=== PATIENT | female | born 1975 | race African-American/Black ===

== ENCOUNTER 2018-03-20 18:35 | Inpatient (IN) | payer OTHER ==
--- NOTE | 2018-03-20 19:03 | PDOC ---
Rapid Medical Evaluation Chief Complaint: Edema Time Seen by Provider: 03/20/18 18:57 Medical Evaluation: 03/20/18 18:58 I have performed a brief in-person evaluation of this patient. The patient presents with a chief complaint of: bilateral feet swellng, denies CP/ Palp/ SOB/ Fevers/ cough. No hx of renal disease Pertinent physical exam findings: + 2=3 pedal edema extends to knees, cool to touch I have ordered the following: CbC, CMP, BNP, UA, CXR, bilateral dopplers lower ext The patient will proceed to the ED for further evaluation. 03/20/18 19:02 03/20/18 19:03 03/20/18 19:05 Discharge Disposition - Diagnosis Edema Qualifiers: Edema type: unspecified Qualified Code(s): R60.9 - Edema, unspecified - Referrals - Patient Instructions - Post Discharge Activity
--- NOTE | 2018-03-20 19:45 | PDOC ---
History of Present Illness - General Chief Complaint: Edema Stated Complaint: EDEMA Time Seen by Provider: 03/20/18 18:57 - History of Present Illness Initial Comments: 03/20/18 19:45 Ms. Noguera is a 42 yo female w/ pmh of.... The patient denies chest pain, shortness of breath, headache and dizziness. Denies fever, chills, nausea, vomit, diarrhea and constipation. Denies dysuria, frequency, urgency and hematuria. I have performed a brief in-person evaluation of this patient. The patient presents with a chief complaint of: bilateral feet swellng, denies CP/ Palp/ SOB/ Fevers/ cough. No hx of renal disease Pertinent physical exam findings: + 2=3 pedal edema extends to knees, cool to touch I have ordered the following: CbC, CMP, BNP, UA, CXR, bilateral dopplers lower ext The patient will proceed to the ED for further evaluation. 03/20/18 19:45 03/20/18 19:48 Past History - Past Medical History Allergies/Adverse Reactions: Allergies Allergy/AdvReac Type Severity Reaction Status Date / Time No Known Allergies Allergy Verified 03/20/18 18:59 Home Medications: Ambulatory Orders Ibuprofen/Diphenhydramine Cit [Advil Pm Caplet] 1 each PO ASDIR 03/20/18 - Suicide/Smoking/Psychosocial Hx Smoking History: Current every day smoker Information on smoking cessation initiated: No Hx Alcohol Use: Yes (2-3 times a wk) Review of Systems - Review of Systems Comments:: 03/20/18 19:49 GENERAL/CONSTITUTIONAL: No fever or chills. No weakness. HEAD, EYES, EARS, NOSE AND THROAT: No change in vision. No ear pain or discharge. No sore throat. CARDIOVASCULAR: No chest pain or shortness of breath RESPIRATORY: No cough, wheezing, or hemoptysis. GASTROINTESTINAL: No nausea, vomiting, diarrhea or constipation. GENITOURINARY: No dysuria, frequency, or change in urination. MUSCULOSKELETAL: No joint or muscle swelling or pain. No neck or back pain. SKIN: No rash NEUROLOGIC: No headache, vertigo, loss of consciousness, or change in strength/ sensation. ENDOCRINE: No increased thirst. No abnormal weight change HEMATOLOGIC/LYMPHATIC: No anemia, easy bleeding, or history of blood clots. ALLERGIC/IMMUNOLOGIC: No hives or skin allergy. *Physical Exam - Vital Signs Last Vital Signs Temp Pulse Resp BP Pulse Ox 98.1 F 100 H 18 115/53 L 100 03/20/18 19:01 03/20/18 19:01 03/20/18 19:01 03/20/18 19:01 03/20/18 19:01 - Physical Exam Comments: 03/20/18 19:49 GENERAL: Awake, alert, and fully oriented, in no acute distress HEAD: No signs of trauma, normocephalic, atraumatic EYES: PERRLA, EOMI, sclera anicteric, conjunctiva clear ENT: Auricles normal inspection, hearing grossly normal, nares patent, oropharynx clear without exudates. Moist mucosa NECK: Normal ROM, supple, no lymphadenopathy, JVD, or masses LUNGS: No distress, speaks full sentences, clear to auscultation bilaterally HEART: Regular rate and rhythm, normal S1 and S2, no murmurs, rubs or gallops, peripheral pulses normal and equal bilaterally. ABDOMEN: Soft, nontender, normoactive bowel sounds. No guarding, no rebound. No masses EXTREMITIES: Normal inspection, Normal range of motion, no edema. No clubbing or cyanosis. NEUROLOGICAL: Cranial nerves II through XII grossly intact. Normal speech, normal gait, no focal sensorimotor deficits SKIN: Warm, Dry, normal turgor, no rashes or lesions noted. *DC/Admit/Observation/Transfer Diagnosis at time of Disposition: Edema Qualifiers: Edema type: unspecified Qualified Code(s): R60.9 - Edema, unspecified - Referrals - Patient Instructions - Post Discharge Activity
--- NOTE | 2018-03-20 20:48 | PDOC ---
Attending Attestation - HPI HPI: 03/20/18 21:47 The patient is a 42 year old female, with a significant past medical history of fibroids, who presents to the emergency department with, 2 days of bilateral lower extremity edema. Patient notes heavy bleeding during her menses, normally bleeding through 10 pads. Patient was advised to have a hysterectomy for her fibroids 10 years ago, but has not followed up. She denies recent fevers, chills, headache or dizziness. She denies recent nausea, vomit, diarrhea or constipation. She denies recent dysuria, frequency, urgency or hematuria. She denies recent chest pain or shortness of breath. Allergies: NKDA Past surgical history: None reported. - Physicial Exam PE: 03/20/18 21:48 Constitutional: Awake, alert, oriented. No acute distress. Head: Normocephalic. Atraumatic +Eyes: Pale conjunctiva. ENT: Mucous membranes are moist and intact. Posterior pharynx without exudates or erythema. Uvula midline. Neck: Supple. Full ROM. No lymphadenopathy. +Cardiovascular: Tachycardic. S1, S2 regular. Distal pulses are 2+ and symmetric. Pulmonary/Chest: No evidence of respiratory distress. Clear to auscultation bilaterally No wheezing, rales or rhonchi. +Abdominal: Palpable mass along the right jessie consistent with fibroids. Soft and non-distended. There is no tenderness. No rebound, guarding or rigidity. Good bowel sounds. Back: No CVA tenderness. +Musculoskeletal: 4+ pitting edema. No cyanosis. No clubbing. Full range of motion in all extremities. No calf tenderness. Radial/pedal pulses are intact and 2+ bilaterally Skin: Skin is warm and dry. No petechiae. No purpura. Neurological: Alert and oriented to person, place, and time. Cranial nerves II -XII are grossly intact. Normal speech. Strength is grossly symmetric. No sensory deficits. Psychiatric: Good eye contact. Normal interaction, affect and behavior. <Khang Mendenhall - Last Filed: 03/20/18 21:47> - Resident Resident Name: Carlitos Rios - ED Attending Attestation I have performed the following: I have examined & evaluated the patient, The case was reviewed & discussed with the resident, I agree w/resident's findings & plan, Exceptions are as noted - Medical Decision Making 03/20/18 20:48 I, Dr. Chanell Calix DO, attest that this document has been prepared under my direction and personally reviewed by me in its entirety. I further attest, that it accurately reflects all work, treatment, procedures and medical decision -making performed by me. 03/20/18 21:14 a/p: 42yo female with b/l LE swelling -hx of fibroids and still with menstrual cycles lasting 10-12 days with heavy bleeding and clots -was offered a hysterectomy in the past, but she was young and didn't want to undergo the surgery at the time -suspect LE swelling from low hgb -pale conjuctiva -will send labs, LE duplex ultrasound, pelvic ultrasound, type and screen -will monitor and reassess 03/20/18 21:47 hgb 3 03/20/18 21:47 will transfuse, will need admission 03/20/18 22:24 DVT study negative 03/20/18 22:24 ultrasound pelvis shows large fibroid resident discussed the case with Dr. 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 resident discussed the case with [facility] who accepts pt to service <Chanell Calix - Last Filed: 03/20/18 22:25> Attestations - Attestations 03/20/18 21:49 Documentation prepared by Khang Mendenhall, acting as medical sales representative for Chanell Calix DO. <Khang Mendenhall - Last Filed: 03/20/18 21:47>
--- NOTE | 2018-03-20 20:49 | PDOC ---
History of Present Illness - General Chief Complaint: Edema Stated Complaint: EDEMA Time Seen by Provider: 03/20/18 18:57 History Source: Patient Exam Limitations: No Limitations - History of Present Illness Initial Comments: 03/20/18 20:43 42 yo female pmh of fibroids presents to the ED with bilateral lower leg edema for 2 days. Pt states she was at work yesterday when she suddenly noticed her legs progressively swelling and had pain in her ankles. Patient works on her feet up to 16 hours a day at [employer]. Patient is adopted and unaware of family history, admits to a 2 pack year hx of smoking. Of note, pt told she had severe fibroids and advised to have surgery over 2 years ago but denied it at the time and notices the fibroids have grown. Pt recently had a menstrual cycle noted to be normal for her which means very heavy flow for 10 days with greater than 10 pads a day. Denies Cp, SOB, N/V/F/c, changes in bowel or bladder habits or abdominal pain. Past History - Past Medical History Allergies/Adverse Reactions: Allergies Allergy/AdvReac Type Severity Reaction Status Date / Time No Known Allergies Allergy Verified 03/20/18 18:59 Home Medications: Ambulatory Orders Ibuprofen/Diphenhydramine Cit [Advil Pm Caplet] 1 each PO ASDIR 03/20/18 - Suicide/Smoking/Psychosocial Hx Smoking History: Current every day smoker Information on smoking cessation initiated: No Hx Alcohol Use: Yes (2-3 times a wk) Review of Systems - Review of Systems Constitutional: No: Chills, Fever Respiratory: No: Shortness of Breath Cardiac (ROS): Yes: Edema (bilaeral X2 days). No: Chest Pain ABD/GI: No: Constipated, Diarrhea, Nausea, Vomiting : Yes: Other (10-12 days menstrual flow with greater than 10 pads required per day). No: Burning, Dysuria Musculoskeletal: No: Back Pain, Muscle Weakness Integumentary: No: Change in Color Neurological: No: Headache, Numbness, Paresthesia *Physical Exam - Vital Signs Last Vital Signs Temp Pulse Resp BP Pulse Ox 98.1 F 100 H 18 115/53 L 100 03/20/18 19:01 03/20/18 19:01 03/20/18 19:01 03/20/18 19:01 03/20/18 19:01 - Physical Exam General Appearance: Yes: Nourished, Appropriately Dressed. No: Apparent Distress HEENT: positive: EOMI, Pale Conjunctivae Respiratory/Chest: positive: Lungs Clear, Normal Breath Sounds. negative: Crackles, Rales, Rhonchi, Stridor, Wheezing Cardiovascular: positive: Regular Rhythm, S1, S2, Edema (bilateral 4+ pitting), Tachycardia. negative: JVD, Murmur Vascular Pulses: Dorsalis-Pedis (R): 3+, Doralis-Pedis (L): 3+ Gastrointestinal/Abdominal: positive: Normal Bowel Sounds, Flat, Protuberent ( multiple fibroids palpable ). negative: Soft, Distended, Guarding, Rebound, Tenderness Extremity: positive: Normal Capillary Refill Integumentary: positive: Normal Color, Dry, Warm Neurologic: positive: Fully Oriented, Alert, Normal Mood/Affect, Normal Response ED Treatment Course - LABORATORY CBC & Chemistry Diagram: 03/20/18 21:01 03/20/18 21:01 Medical Decision Making - Medical Decision Making 03/20/18 21:38 42 yo female pmh of fibroids and very heavy menstrual flow presents with bilateral 4+ pitting edema and pale conjunctiva DDX: Fibroids compressing IVC leading to bilateral pitting edema , heavy menstrual flow causing anemia Labs: Hgb 3.37 ------- 4 Units PRBC ordered 03/20/18 22:[address] Harris (OB) who states there is no role for Inpatient OB at this point and that the patient may require a hysterectomy from a [facility] with Oncology and no HEALTH ASSESSMENT AND TREATMENT TEACHER consult needed. Spoke with the Hospitalist team who agree to admit pt to med surg and possibly consult OB in the morning. *DC/Admit/Observation/Transfer Diagnosis at time of Disposition: Edema Qualifiers: Edema type: unspecified Qualified Code(s): R60.9 - Edema, unspecified - Referrals - Patient Instructions - Post Discharge Activity
[2018-03-20 21:17] LABS: EOS % 2.2 % (0-4.5); HEMATOCRIT 13.5 % (32.4-45.2); LYMPH % 36.5 % (8-40); MCHC 27.4 g/dl (32.0-36.0); MEAN CELL VOLUME 54.6 fl (80-96); MEAN PLT VOLUME 8.3 fl (7.5-11.1); MONO % 5.6 % (3.8-10.2); NEUT % 54.7 % (42.8-82.8); PLATELET COUNT 323 K/MM3 (134-434); RBC 2.47 M/mm3 (3.60-5.2); RDW 23.3 % (11.6-15.6); WHITE BLOOD COUNT 3.8 K/mm3 (4.0-10.0)
[2018-03-20 21:21] LABS: MCH 14.9 pg (25.7-33.7)
[2018-03-20 21:24] LABS: HEMOGLOBIN 3.7 GM/dL (10.7-15.3)
[2018-03-20 21:38] LABS: ALBUMIN 3.6 g/dl (3.4-5.0); ALK PHOS 138 U/L (45-117); ANION GAP 8 MMOL/L (8-16); BILIRUBIN,TOTAL 0.3 mg/dL (0.2-1); BLOOD UREA NITROGEN 7 mg/dL (7-18); CALCIUM 8.1 mg/dL (8.5-10.1); CHLORIDE 111 mmol/L (98-107); CO2 22 mmol/L (21-32); CREATININE 0.5 mg/dL (0.55-1.3); GLUCOSE,RANDOM 81 mg/dL (74-106); N-TERMINAL BNP 619.2 pg/ml (5-125); SGOT/AST 12 U/L (15-37); SGPT/ALT 11 U/L (13-61); SODIUM 140 mmol/L (136-145); TOT PROT 7.5 g/dl (6.4-8.2)
[2018-03-20 23:03] LABS: ANISOCYTOSIS 3+; MACROCYTOSIS OCCASIONAL; PLATELET ESTIMATE ADEQUATE
[2018-03-20 23:48] LABS: URINE APPEARANCE CLEAR; URINE BILIRUBIN NEGATIVE (<2.0 mg/dL); URINE COLOR LTYELLOW; URINE GLUCOSE (UA) NEGATIVE (NEGATIVE); URINE KETONE NEGATIVE (NEGATIVE); URINE LEUK ESTERASE NEGATIVE (NEGATIVE); URINE NITRITE NEGATIVE (NEGATIVE); URINE PROTEIN NEGATIVE (NEGATIVE); URINE UROBILINOGEN NEGATIVE mg/dL (0.2-1.0)
[2018-03-20 23:49] LABS: INR 1.08 (0.83-1.09); PROTHROMBIN TIME (PATIENT) 12.8 SEC (9.7-13.0)
[2018-03-20 23:51] LABS: ACTIVATED PTT 25.3 SECONDS (25.2-36.5)
--- NOTE | 2018-03-21 00:09 | HP ---
CHIEF COMPLAINT: Lower extremity swelling PCP: None HISTORY OF PRESENT ILLNESS: Patient is a 42 year old female with history of uterine fibroids presents with complaint of b/l lower extremity swelling. Began two days ago without clear inciting factor. Denies trauma, or injury. Denies immobilization, calf tenderness. She has not experienced these symptoms in the past. Her uterine fibroids were diagnosed approx 10 years ago. At that time she did not want to undergo hysterectomy. She is , LMP three days ago. Her periods usually last about 10 days, and she uses at least 10 pads per day. She does not follow a plant chief, and last appointment was 2 years ago at [facility] in [place]. She has never had blood transfusion in the past. Denies falls, loss of consciousness, fevers, chills, shortness of breath, chest pain, palpitations, abdominal pain, nausea, vomiting, hemoptysis, diarrhea, constipation, hematochezia, melena, dysuria, hematuria. ER course was notable for: (1) Hb 3.8 Hct 13.5 MCV 54.6 (2) Lower extremity doppler US, pelvic/ bladder US (3) Recent Travel: denies PAST MEDICAL HISTORY: uterine fibroids diagnosed 2013 PAST SURGICAL HISTORY: denies Social History: Smoking: smokes 1ppd for past 10 years. recently cut down to 2-3 a day. Alcohol: admits 2-3 drinks socially Drugs: denies Family History: Unknown. Patient is adopted, and has no contact or medical records of her family. Allergies NKDA No Known Allergies Allergy (Verified 03/20/18 18:59) HOME MEDICATIONS: Home Medications Medication Instructions Recorded Ibuprofen/Diphenhydramine Cit 1 each PO ASDIR 03/20/18 [Advil Pm Caplet] REVIEW OF SYSTEMS As per HPI PHYSICAL EXAMINATION Vital Signs - 24 hr 03/20/18 19:01 Temperature 98.1 F Pulse Rate 100 H Respiratory 18 Rate Blood Pressure 115/53 L O2 Sat by Pulse 100 Oximetry (%) GENERAL: Awake, alert, and fully oriented, in no acute distress. HEAD: Normal with no signs of trauma. EYES: Pupils equal, round and reactive to light, extraocular movements intact without nystagmus b/l. Conjunctival pallor noted b/l. Sclera anicteric. EARS, NOSE, THROAT: Oropharynx clear without exudates. Moist mucous membranes. NECK: Normal range of motion, supple without lymphadenopathy, JVD, or masses. LUNGS: Breath sounds equal, clear to auscultation bilaterally. No wheezes, and no crackles. No accessory muscle use. HEART: Regular rate and rhythm. Normal S1 and S2 with holosystolic murmur, no radiation to carotids. ABDOMEN: Soft, nontender to palpation, not distended. Numerous firm fibroids palpated. Normoactive bowel sounds auscultated. No guarding, no rebound tenderness. No hepatomegaly palpated. RECTAL: Good anal sphincter tone. No external or internal hemorrhoids noted. No stool in rectal vault. Faint light brown streak of stool noted on gloved finger. Sent to lab for stool occult blood. MUSCULOSKELETAL: Normal range of motion at all joints. No bony deformities or tenderness. No CVA tenderness. UPPER EXTREMITIES: 2+ radial pulses b/l, warm, well-perfused. LOWER EXTREMITIES: 1+ dorsalis pedis pulses b/l, warm, well-perfused. 3+ pitting edema, painful at left lower extremity, 2+ right lower extremity. NEUROLOGICAL: Cranial nerves II-XII intact. Normal speech. No gross focal deficits. Strength 5/5 b/l upper and lower extremities. PSYCHIATRIC: Cooperative. Appropriate mood and affect upon my encounter. SKIN: Warm, dry. Laboratory Results - last 24 hr 03/20/18 03/20/18 03/20/18 21:01 21:01 21:01 WBC 3.8 L RBC 2.47 L Hgb 3.7 L* Hct 13.5 L MCV 54.6 L MCH 14.9 L MCHC 27.4 L RDW 23.3 H Plt Count 323 MPV 8.3 Absolute Neuts (auto) 2.1 Neutrophils % 54.7 Lymphocytes % 36.5 Monocytes % 5.6 Eosinophils % 2.2 Basophils % 1.0 Nucleated RBC % 1 H Hypochromia 3+ Platelet Estimate Adequate Polychromasia Occasional Anisocytosis 3+ Microcytosis 3+ Macrocytosis Occasional PT with INR INR PTT (Actin FS) Sodium 140 Potassium 4.0 Chloride 111 H Carbon Dioxide 22 Anion Gap 8 BUN 7 Creatinine 0.5 L Creat Clearance w eGFR > 60 Random Glucose 81 Calcium 8.1 L Total Bilirubin 0.3 AST 12 L ALT 11 L Alkaline Phosphatase 138 H B-Natriuretic Peptide 619.2 H Total Protein 7.5 Albumin 3.6 Urine Color Urine Appearance Urine pH Ur Specific [place] Urine Protein Urine Glucose (UA) Urine Ketones Urine Blood Urine Nitrite Urine Bilirubin Urine Urobilinogen Ur Leukocyte Esterase Urine HCG, Qual Stool Occult Blood Blood Type O POSITIVE Antibody Screen Negative Crossmatch See Detail 03/20/18 03/20/18 03/20/18 23:10 23:20 23:20 WBC RBC Hgb Hct MCV MCH MCHC RDW Plt Count MPV Absolute Neuts (auto) Neutrophils % Lymphocytes % Monocytes % Eosinophils % Basophils % Nucleated RBC % Hypochromia Platelet Estimate Polychromasia Anisocytosis Microcytosis Macrocytosis PT with INR INR PTT (Actin FS) Sodium Potassium Chloride Carbon Dioxide Anion Gap BUN Creatinine Creat Clearance w eGFR Random Glucose Calcium Total Bilirubin AST ALT Alkaline Phosphatase B-Natriuretic Peptide Total Protein Albumin Urine Color Ltyellow Urine Appearance Clear Urine pH 6.0 Ur Specific [place] 1.013 Urine Protein Negative Urine Glucose (UA) Negative Urine Ketones Negative Urine Blood Negative Urine Nitrite Negative Urine Bilirubin Negative Urine Urobilinogen Negative Ur Leukocyte Esterase Negative Urine HCG, Qual Negative Stool Occult Blood Negative Blood Type Antibody Screen Crossmatch 03/20/18 03/20/18 23:28 23:30 WBC RBC Hgb Hct MCV MCH MCHC RDW Plt Count MPV Absolute Neuts (auto) Neutrophils % Lymphocytes % Monocytes % Eosinophils % Basophils % Nucleated RBC % Hypochromia Platelet Estimate Polychromasia Anisocytosis Microcytosis Macrocytosis PT with INR 12.80 INR 1.08 PTT (Actin FS) 25.3 Sodium Potassium Chloride Carbon Dioxide Anion Gap BUN Creatinine Creat Clearance w eGFR Random Glucose Calcium Total Bilirubin AST ALT Alkaline Phosphatase B-Natriuretic Peptide Total Protein Albumin Urine Color Urine Appearance Urine pH Ur Specific [place] Urine Protein Urine Glucose (UA) Urine Ketones Urine Blood Urine Nitrite Urine Bilirubin Urine Urobilinogen Ur Leukocyte Esterase Urine HCG, Qual Stool Occult Blood Blood Type O POSITIVE Antibody Screen Crossmatch ASSESSMENT/PLAN: Patient is a 42 year old female with history of uterine fibroids presents with complaint of b/l lower extremity swelling. Microcytic anemia -Likely secondary to uterine fibroids -Pelvic US shows numerous uterine leiomyomas largest measuing 11cm -Stool negative for occult blood -Transfuse 4 units PRBCs. Goal Hb to 7. -F/U CBC one hour after blood transfusion completed -F/U Iron studies, B12, Folate, reticulocyte count -TUCK POINTER HELPER consult Dr. Vázquez -Consider hematology-oncology consult Lower extremity edema -Likely secondary to venous compression by the uterine fibroids -Lower extremity duplex negative for DVT b/l -F/U cardiac echo -F/U CT abdomen pelvis with contrast -F/U TUCK POINTER HELPER consult for likely surgical intervention Elevated Alkaline Phosphatase -Unclear etiology, however no elevation of transaminases. -F/U GGT -Will trend CMP FEN -4 units PRBCs transfusion -Follow CMP -NPO pending OBGYN evaluation Prophylaxis -Heparin 5000u subq TID Disposition -Admit to telemetry floor Visit type - Emergency Visit Emergency Visit: Yes ED Registration Date: 03/20/18 Care time: The patient presented to the Emergency Department on the above date and was hospitalized for further evaluation of their emergent condition. - New Patient This patient is new to me today: Yes Date on this admission: 03/21/18 - Critical Care Critical Care patient: No
--- NOTE | 2018-03-21 02:16 | PN ---
Teaching Attending Note Name of Resident: Ktaerin Somers ATTENDING PHYSICIAN STATEMENT I saw and evaluated the patient. I reviewed the resident's note and discussed the case with the resident. I agree with the resident's findings and plan as documented. SUBJECTIVE: Seen and examined with resident; please see their note for additional documentation. Patient is a 42 y/o AAF with a PMH of fibroids known since at least 2002 in [place] where she was offered hysterectomy. She did not get the procedure and has had no intervention for her fibroids. She presents to the ER with LE edema, sym b/l, for 2 days. Progressively worsening. Never had this issue before, nothing makes it better or worse, hasn't seen any other providers for this. No cardiac history, etc. She is found to have an elevated BNP but no JVD or other signs of CHF. B/l venous US done and was negative for any DVT Her abdomen was found to be full and hard; US shows multiple large fibroids with the fundus of the uterus above midabdomen. She was incidentally found to have a Hb in the 3 range. She hasn't been seen for this by anyone else; hasn't had transfusions in the past. She is found to be somewhat pale; she does get heavy periods using up to 10 pads/day with periods lasting 10-12 days. There is concern that the IVC may be getting compressed from the enlarged uterus. OB was contacted by ER; please see their documentation for recommendations. She will be brought to the medicine service with OB as a consultation 10 sys ROS done and negative aside from HPI FH asked and noncontributory 10 pack year history, denies EtOH abuse PMH/PSH per documentation OBJECTIVE: VSS, labs and imaging reviewed NAD, AAO, resting comfortably in bed. Skin pale. B/L +1-2 pitting edema sym b/l, no calf tenderness, skin normal Abdomen nontender but with firm mass, irregular to palpation extending up past midabdomen that is firm in texture and likely client representative of a grossly enlarged uterus RRR s1/2 with 3/6 systolic murmur no JVD Lungs CTAB with sym exp CN2-12 grossly intact without any FND CT abdomen/pelvis w/ IV contrast pending LE doppler reviewed US pelvis reviewed; large uterus with multiple fibroids extending above midabd Echo ordered ASSESSMENT AND PLAN: Mrs. Noguera is a 42 y/o AAF with a PMH of fibroids presents with b/l LE swelling and found to have severe anemia. She will be transfused to a goal of 7 and the etiology of her LE edema will be worked up. 1) Severe Anemia -Likely due to fibroids with underlying iron deficiency, etc. -Consulting OBGYN for management of the fibroids -Obtaining iron studies, reticulocyte count, B12/folate, peripheral smear. -Transfuse to goal of 7 2) New Bilateral LE Edema -2 day history; no prior CV hx. BNP is mildly elevated as well. LE duplex negative. Will check echo -Concerned for compression of IVC due to the enlarged uterus; will check a CT a/ p with contrast to elucidate the anatomy of the vasculature. Will hold off on diuresis for now but may need some lasix given the amount of blood she will likely require. 3) Fibroids -Consulting OB 4) Elevated Alk Phos -In the setting of either low/normal other LFTs -Check GGT and trend CMP; if worsening abdominal pain consider further workup FENA -Blood -monitor and replace PRN -Regular Diet -As tolerated Full Code
[2018-03-21] MEDS ORDERED: HEPARIN NA (PORCINE) 5,000 UNITS/ML 1ML VIAL SQ SCH (06:00)
[2018-03-21 06:48] VITALS: BMI 25.1
[2018-03-21 08:55] LABS: ALBUMIN 3.2 g/dl (3.4-5.0); ALK PHOS 118 U/L (45-117); ANION GAP 7 MMOL/L (8-16); BILIRUBIN,TOTAL 0.5 mg/dL (0.2-1); BLOOD UREA NITROGEN 6 mg/dL (7-18); CALCIUM 8.6 mg/dL (8.5-10.1); CHLORIDE 112 mmol/L (98-107); CO2 23 mmol/L (21-32); CREATININE 0.6 mg/dL (0.55-1.3); GLUCOSE,RANDOM 84 mg/dL (74-106); MAGNESIUM 2.1 mg/dL (1.8-2.4); PHOSPHOROUS 3.6 mg/dL (2.5-4.9); POTASSIUM 3.9 mmol/L (3.5-5.1); SGOT/AST 14 U/L (15-37); SGPT/ALT 10 U/L (13-61); SODIUM 141 mmol/L (136-145); TOT PROT 6.7 g/dl (6.4-8.2)
[2018-03-21] MEDS ORDERED: FLU VACCINE QUAD 60 MCG/0.5 ML (MDV 18-19) IM ONE (10:00)
[2018-03-21] MEDS ORDERED: PNEUMOC 13-VAL CONJ-DIP CRM/PF 0.5 ML DISP.SYRIN IM ONE (10:00)
--- NOTE | 2018-03-21 12:12 | ECHO ---
Name: ERINN THEODOREBERLY Exam:Adult Echocardiogram Study Date: 03/21/2018 08:30 AM Age: 42 yrs Reason For Study: elevated bnp Height: 67 in Weight: 158 lb BSA: 1.8 m2 MMode/2D Measurements & Calculations IVSd: 0.92 cm Ao root diam: 2.8 cm LVIDd: 5.8 cm LA dimension: 4.7 cm LVIDs: 2.8 cm LVPWd: 0.78 cm LVPWs: 2.0 cm EDV(Teich): 164.9 ml ESV(Teich): 28.6 ml LVOT diam: 1.9 cm TAPSE: 3.1 cm Doppler Measurements & Calculations MV E max roldan: 122.0 cm/sec Ao V2 max: 193.3 cm/sec MV A max roldan: 105.3 cm/sec Ao max P.0 mmHg MV E/A: 1.2 MV dec time: 0.17 sec SALAS(V,D): 2.2 cm2 LV V1 max P.1 mmHg MR max roldan: 538.0 cm/sec LV V1 max: 142.6 cm/sec MR max P.9 mmHg TR max roldan: 305.0 cm/sec PA V2 max: 138.5 cm/sec TR max P.4 mmHg PA max P.7 mmHg Med Peak E' Roldan: 9.0 cm/sec Med E/e': 13.5 Lat Peak E' Roldan: 10.0 cm/sec Lat E/e': 12.2 Procedure A complete two-dimensional transthoracic echocardiogram was performed (2D, M-mode, Doppler and color flow Doppler). Left Ventricle The left ventricular size, thickness and function are normal. The left ventricular ejection fraction is normal. Ejection Fraction = 60-65%. The left ventricular wall motion is normal. Right Ventricle The right ventricle is normal in size and function. Atria The left atrium is mildly dilated. The right atrium is mildly dilated. Mitral Valve There is mild mitral regurgitation. Tricuspid Valve There is moderate tricuspid regurgitation. Right ventricular systolic pressure is normal. Aortic Valve No hemodynamically significant valvular aortic stenosis. No aortic regurgitation is present. Pulmonic Valve There is no pulmonic valvular regurgitation. Great Vessels The aortic root is normal size. Moderately dilated inferior vena cava. Pericardium/Pleura Trivial pericardial effusion not hemodynamically significant. Interpretation Summary The left ventricular size, thickness and function are normal The right ventricle is normal in size and function. The left atrium is mildly dilated. The right atrium is mildly dilated. There is mild mitral regurgitation. There is moderate tricuspid regurgitation. Moderately dilated inferior vena cava Trivial pericardial effusion not hemodynamically significant MD Gamaliel Pfeiffer 03/21/2018 12:11 PM
--- NOTE | 2018-03-21 14:46 | EKG ---
Test Reason : Blood Pressure : / mmHG Vent. Rate : 097 BPM Atrial Rate : 097 BPM P-R Int : 184 ms QRS Dur : 076 ms QT Int : 390 ms P-R-T Axes : 057 056 055 degrees QTc Int : 495 ms NORMAL SINUS RHYTHM POSSIBLE LEFT ATRIAL ENLARGEMENT PROLONGED QT ABNORMAL ECG NO PREVIOUS ECGS AVAILABLE Confirmed by JULIAN DIAZ MD ([id number]) on 03/21/2018 2:46:26 PM Referred By: Confirmed By:JULIAN DIAZ MD
--- NOTE | 2018-03-21 14:59 | PN ---
Progress Note, Physician Chief Complaint: Ms Noguera says she feels tired but otherwise is without complaint. No cp, sob, n/ v. - Objective Vital Signs: Vital Signs Temperature 37.3 C 03/21/18 12:59 Pulse Rate 96 H 03/21/18 12:59 Respiratory Rate 18 03/21/18 12:59 Blood Pressure 138/74 03/21/18 12:59 O2 Sat by Pulse Oximetry (%) 98 03/21/18 03:56 Constitutional: Yes: Well Nourished, No Distress, Calm Cardiovascular: Yes: Tachycardia. No: Gallop, Murmur, Rub Respiratory: Yes: Regular, CTA Bilaterally. No: Rales, Rhonchi, Wheezes Gastrointestinal: Yes: Normal Bowel Sounds, Soft. No: Distention, Tenderness Extremities: Yes: WNL Edema: No Labs: CBC, BMP 03/21/18 07:00 03/21/18 07:00 INR, PTT INR 1.08 (0.83-1.09) 03/20/18 23:28 Problem List - Problems (1) Severe anemia Assessment/Plan: -secondary to bleeding from fibroids -continue to transfuse 4 units secondary to H/H so low -monitor -patient feeling improved Code(s): D64.9 - ANEMIA, UNSPECIFIED (2) Fibroids Assessment/Plan: -gynecology consulted -await recommendations Code(s): D21.9 - BENIGN NEOPLASM OF CONNECTIVE AND OTHER SOFT TISSUE, UNSP (3) Elevated alkaline phosphatase level Assessment/Plan: -monitor Code(s): R74.8 - ABNORMAL LEVELS OF OTHER SERUM ENZYMES (4) Edema Assessment/Plan: -ECHO reviewed -monitor Code(s): R60.9 - EDEMA, UNSPECIFIED Qualifiers: Edema type: unspecified Qualified Code(s): R60.9 - Edema, unspecified
[2018-03-21] MEDS ORDERED: ACETAMINOPHEN 325 MG TABLET (FP) PO ONE (18:46)
[2018-03-21 23:22] LABS: HEMATOCRIT 23.6 % (32.4-45.2); HEMOGLOBIN 7.3 GM/dL (10.7-15.3); MCH 20.9 pg (25.7-33.7); MCHC 31.1 g/dl (32.0-36.0); MEAN CELL VOLUME 67.4 fl (80-96); MEAN PLT VOLUME 8.3 fl (7.5-11.1); PLATELET COUNT 260 K/MM3 (134-434); RDW 35.7 % (11.6-15.6); WHITE BLOOD COUNT 3.8 K/mm3 (4.0-10.0)
[2018-03-22 06:08] LABS: SERUM IRON SATURATION 2 % (15-55); TOTAL IRON BINDING CAPACITY 441 ug/dL (250-450); UIBC 430 ug/dL (131-425)
[2018-03-22 08:28] LABS: ANION GAP 8 MMOL/L (8-16); BLOOD UREA NITROGEN 5 mg/dL (7-18); CALCIUM 7.9 mg/dL (8.5-10.1); CHLORIDE 112 mmol/L (98-107); CO2 20 mmol/L (21-32); CREATININE 0.5 mg/dL (0.55-1.3); GLUCOSE,RANDOM 71 mg/dL (74-106); POTASSIUM 3.6 mmol/L (3.5-5.1); SODIUM 140 mmol/L (136-145)
[2018-03-22 09:53] LABS: BASO % 0.5 % (0-2.0); EOS % 1.7 % (0-4.5); HEMOGLOBIN 7.3 GM/dL (10.7-15.3); LYMPH % 29.9 % (8-40); MCH 20.7 pg (25.7-33.7); MCHC 30.2 g/dl (32.0-36.0); MEAN CELL VOLUME 68.5 fl (80-96); MEAN PLT VOLUME 8.3 fl (7.5-11.1); MONO % 8.3 % (3.8-10.2); NEUT % 59.6 % (42.8-82.8); PLATELET COUNT 252 K/MM3 (134-434); RBC 3.51 M/mm3 (3.60-5.2); RDW 35.3 % (11.6-15.6); WHITE BLOOD COUNT 3.6 K/mm3 (4.0-10.0)
[2018-03-22] MEDS ORDERED: VITAMIN B COMP W-C 1 EA TABLET PO SCH (10:15)
--- NOTE | 2018-03-22 10:24 | PN ---
Progress Note, Physician Chief Complaint: No new complaints feels improved hemodytnamically stable - Current Medication List Current Medications: Active Medications Ferrous Sulfate (Feosol -) 325 mg PO TIDCM AVERY Multivit/Ca Carb/B Cmplx/FA/Prenat (Nephro-Candace -) 1 tablet PO DAILY [facility] - Objective Vital Signs: Vital Signs Temperature 98.5 F 03/22/18 06:22 Pulse Rate 67 03/22/18 06:22 Respiratory Rate 20 03/22/18 06:22 Blood Pressure 130/88 03/22/18 06:22 O2 Sat by Pulse Oximetry (%) 98 03/21/18 03:56 Young F not in distress HEENT: Mm moist, anemia, periorbital puffiness NECK: No JVD No Bruit, Trachea central CHEST: CTA B/L CVS: S1S2 R no m/g/r ABD: distention +. Palpable suprapubic uterus EXT: Trace edema no calf tenderness GRAVITY PROSPECTING OPERATOR HELPER: AOX3 non focal Labs: CBC, BMP 03/22/18 07:00 03/22/18 07:00 INR, PTT INR 1.08 (0.83-1.09) 03/20/18 23:28 Problem List - Problems (1) Severe anemia Assessment/Plan: Due DUB and KARL H/H stable after transfusion add iron Pills B Complex out patient F/U needs Hb Electrophoresis asout patient if persistent anemia despite Ironreplaceent. Code(s): D64.9 - ANEMIA, UNSPECIFIED (2) KARL (iron deficiency anemia) Assessment/Plan: cOnt PO Iron Code(s): D50.9 - IRON DEFICIENCY ANEMIA, UNSPECIFIED (3) Fibroids Assessment/Plan: At present no active bleeding H/O DUB leads to Symptomatic severe KARL will F/U BUILDING INSPECTION ENGINEER recommendations. Code(s): D21.9 - BENIGN NEOPLASM OF CONNECTIVE AND OTHER SOFT TISSUE, UNSP (4) Edema Assessment/Plan: Due to anemia and compression of IVC due to large bulky uterus secondary to fibroid. Code(s): R60.9 - EDEMA, UNSPECIFIED Qualifiers: Edema type: unspecified Qualified Code(s): R60.9 - Edema, unspecified
--- NOTE | 2018-03-22 10:34 | DS ---
Physical Examination Vital Signs: Vital Signs Temperature 98.5 F 03/22/18 06:22 Pulse Rate 67 03/22/18 06:22 Respiratory Rate 20 03/22/18 06:22 Blood Pressure 130/88 03/22/18 06:22 O2 Sat by Pulse Oximetry (%) 98 03/21/18 03:56 Constitutional: Yes: No Distress Eyes: Yes: Conjunctiva Clear, Other (Anemia) HENT: Yes: Atraumatic, Normocephalic Neck: Yes: Supple, Trachea Midline. No: Lymphadenopathy Cardiovascular: Yes: Regular Rate and Rhythm, S1, S2 Respiratory: Yes: Regular, CTA Bilaterally Gastrointestinal: Yes: Normal Bowel Sounds, Soft, Other (Palpable uterus) Musculoskeletal: Yes: Back Pain Extremities: No: Calf Tenderness Edema: LLE: Trace, RLE: Trace Peripheral Pulses: Left Doralis Pedis: 2+, Right Dorsalis Pedis: 2+ Neurological: Yes: Alert ...Motor Strength: WNL, LUE, LLE, RUE, RLE Labs: CBC, BMP 03/22/18 07:00 03/22/18 07:00 Discharge Summary Reason For Visit: UTERINE LEIOMYOMA,SECONDARY ANEMIA Current Active Problems Edema (Acute) Elevated alkaline phosphatase level (Acute) Fibroids (Acute) KARL (iron deficiency anemia) (Acute) Severe anemia (Acute) Hospital Course: 42 yrs old F adopted PMH of fibroids known since 2002 in [place] where she was offered hysterectomy but she declined, She presents to the ER with LE edema , sym b/l, for 2 days. In the Ed w/u shows sever microcytic anemia low Iron stores, recieved blood PRBC H/H and symptoms improved HB stable at 7.3 no acute bleeding, Inrial BNP was high ECHO was done that shows normal EF mild pericrdial effusion and modertae TR normal RV and LV size suggestive of High output cardiac failure due to chronic sever anemia, patiraent put on IRon and asked to use NSAIDS also added PO Omeprazole as patient has GERD symptoms. Condition: Stable - Instructions Referrals: Donnell Webb MD [Staff Physician] - 2 Weeks Raymond Vázquez MD [Staff Physician] - 1 Month Disposition: HOME - Home Medications Comprehensive Discharge Medication List: Ambulatory Orders Omp[razole 20 mg daily Ferrous Sulfate [Feosol] 325 mg PO TIDCM 30 Days #90 ud MDD 3 11/02/18 Vitamin B Comp W-C [Nephro-Candace -] 1 tablet PO DAILY 30 Days #30 tablet
[2018-03-22] MEDS ORDERED: FERROUS SO4 325 MG TABLET (FP) PO SCH (12:00)
[2018-03-22] MEDS ORDERED: PT OWN MED DRAWER 7, Y5N ONE (12:57)
[2018-03-22 13:34] VITALS: BP 130/80; PULSE 79; TEMP 98.8
--- NOTE | 2018-03-22 14:01 | CON.OBG ---
Consult Consult Specialty:: Atmospheric Physicist. Referred by:: Dr. Yeung Reason for Consultation:: Menorrhagia secondary to large uterine leiomyomata. Iron defficiency anemia. - History of Present Illness Chief Complaint: Uterine leiomymata; large. Menorrhagia. Iron defficiency anemia secondary to blood loss. Edema. Pelvic pain, pressure. History of Present Illness: Not dictated. - History Source History Provided By: Patient - Past Medical History PROVER: Yes: Other. No: Alzheimer's, CVA, Dementia, Migraine, Multiple Sclerosis, Peripheral Neuropathy, Parkinson's, Seizure, Syncope, TIA, Vertigo Cardio/Vascular: No: AFIB, Aneurysm, Aortic Insufficiency, Aortic Stenosis, CAD , CHF, Deep Vein Thrombosis, HTN, Hyperlipdemia, VT, Mitral Insufficiency, Mitral Stenosis, Murmur, Pulmonary Hypertension, Other Pulmonary: No: Asthma, Bronchitis, Cancer, COPD, O2 Dependent, Pneumonia, Previously Intubated, Pulmonary Embolus, Pulmonary Fibrosis, Sleep Apnea, Other Gastrointestinal: No: Ascites, Cancer, Constipation, Crohn's Disease, Diverticulitis, Diverticulosis, Esophageal Varices, Gastritis, GERD, GI Bleed, Hemorrhoids, Hiatal Hernia, Inflamatory Bowel Disease, Irritable Bowel Disease, Pancreatitis, Peptic Ulcer Disease, Ulcerative Colitis, Other Hepatobiliary: No: Cirrhosis, Cholelithiasis, Cholecystitis, Choledocholithiasis , Hepatitis A, Hepatitis B, Hepatitis C, Other Renal/: No: Renal Failure, Renal Inusuff, BPH, Cancer, Hematuria, Hemodialysis , Neurogenic Bladder, Renal Calculi, UTI, Other Reproductive: Yes: Fibroids ...LMP: 03/13/18 (Extremely heavy.) ...: No (.) Heme/Onc: Yes: Bleeding Disorder Infectious Disease: No: AIDS, C-Diff, Herpes Zoster, HIV, MRSA, STD's, Tuberculosis, VREF, Other Psych: No: Addictions, Anxiety, Bipolar, Depression, Panic, Psychosis, Schizophrenia, Other Musculoskeletal: No: Bursitis, Chronic low back pain, Hemiparesis, Hemiplegia, Osteoarthritis, Paraplegia, Other Rheumatology: No: Fibromyalgia, Gout, Lupus, Rheumatoid Arthritis, Sarcoidosis, Vasculitis, Other ENT: No: Allergic Rhinitis, Sinusitis, Other Endocrine: No: Coke's Disease, Bartlett's Disease, Diabetes Insipidus, Diabetes Mellitus, Hyperparathyroidism, Hyperthyroidism, Hypothyroidism, Osteopenia, SIADH, Other Dermatology: No: Basal Cell, Cellulitis, Eczema, Melanoma, Psoriasis, Squamous Cell, Other - Past Surgical History Past Surgical History: Yes: None (Not bleeding now. Stable; transfused 4 u. of P /C.) - Alcohol/Substance Use Hx Alcohol Use: Yes (2-3 times a wk) - Smoking History Smoking history: Current every day smoker Have you smoked in the past 12 months: Yes Aproximately how many cigarettes per day: 40 Home Medications - Allergies Allergies/Adverse Reactions: Allergies Allergy/AdvReac Type Severity Reaction Status Date / Time No Known Allergies Allergy Verified 03/20/18 18:59 - Home Medications Home Medications: Ambulatory Orders Ferrous Sulfate [Feosol] 325 mg PO TIDCM 30 Days #90 ud MDD 3 03/22/18 Pantoprazole Sodium [Protonix -] 20 mg PO DAILY #30 tablet.ec 03/22/18 Vitamin B Comp W-C [Nephro-Candace -] 1 tablet PO DAILY 30 Days #30 tablet Physical Exam-DATA SOLUTIONS ARCHITECT Vital Signs: Vital Signs Temperature 98.8 F 03/22/18 10:00 Pulse Rate 79 03/22/18 10:00 Respiratory Rate 20 03/22/18 10:00 Blood Pressure 130/80 03/22/18 10:00 O2 Sat by Pulse Oximetry (%) 97 03/22/18 09:00 Labs: CBC, BMP 03/22/18 07:00 03/22/18 07:00
--- NOTE | 2018-03-22 16:21 | CONS ---
DATE OF CONSULTATION: DATE OF DICTATION: 03/22/2018 HISTORY OF PRESENT ILLNESS: Patient is a 42-year-old black female who was admitted to the hospital via emergency room. Dr. Ku requested MANAGER GOLF consultation. Patient went to the emergency room with bilateral pedal edema. During the evaluation, it was quickly established that she has a profuse menstrual flow, and she was right in the middle of her period. Patient is known to have a large uterine leiomyomata. On admission, her H and H were 3 and 13. Patient was placed on the floor, stabilized, and transfused 4 units of packed cells. Her symptoms improved. She is still anemic but completely stable. Her bleeding subsided. Past history characteristic for fibroids growing over last 10 years. Patient was offered hysterectomy in the past but declined. She was still planning to have a . She moved from [place] some 2 years ago and has not been seen by a surgical instrument repair specialist nor has she had Pap smear or mammography for at least 3 years. Patient feels pelvic pain and pressure from her fibroids, but she has grown used to it. By now, she is aware of the gravity of her situation. She gave up on her hope to have a baby. She is 0, para 0. Patient is not in a relationship right now and not sexually active. PAST MEDICAL HISTORY: Her past medical history is essentially unremarkable. PAST SURGICAL HISTORY: No surgical history. MEDICATION: Patient currently is not taking any medication. ALLERGIES: No allergies. REVIEW OF SYSTEMS: Negative for all organ groups. CAT scan was reviewed, and she indeed has very large multiple uterine leiomyomata. She has mild cardiomegaly and pericardial effusion which most likely is due to a severe anemia, similar to her lower extremity edema. Her venous Doppler studies of lower extremities were negative. PHYSICAL EXAMINATION: GENERAL: Patient is a stable, well developed, well nourished black female in no acute distress. HEAD AND NECK: Within normal limits. Thyroid not enlarged. BREASTS: Soft bilaterally. No obvious masses. Axilla free. ABDOMEN: Soft, nontender, with normal bowel sounds. Lower abdominal mass compatible with fibroid uterus, extended to slightly above the umbilicus with right sided extension of most likely pedunculated myoma measuring about 6 to 7 cm. Limited mobility. No tenderness. PELVIC: No bleeding. Vulva, vagina, BUS nulliparous. Digital examination deferred at that point. IMPRESSION: 1. Large, symptomatic uterine leiomyomata. 2. Severe menorrhagia secondary to leiomyomata. 3. Severe, life-threatening iron deficiency anemia. 4. Pelvic pain, pressure. 5. Pedal edema, most likely secondary to severe anemia and blood loss. PLAN: Patient is not bleeding at that point. She clearly needs aggressive management of her fibroids. She is amenable to hysterectomy at that point. Discussed possibility of myomectomy, embolization, etc. Ovarian preservation explained to patient. Bilateral salpingectomy recommended with hysterectomy. Patient most likely is not a good candidate for invasive surgery due to the size of the uterus. Pfannenstiel incision with subtotal hysterectomy, bilateral salpingectomy could be employed. Cell Saver may be a good idea. In the meantime, the patient will need a workup completed including Pap smear, possible mammography. I will follow her closely through my office. Prescription for Provera 10 mg q. daily up to q.i.d. prescribed. Patient will start 1 tablet a day for next 21 days. She needs iron supplementation, vitamin C, nutrition, etc. All fully discussed with patient. Total time of this consultation was 45 minutes, of which more than half was spent on counseling. The patient is a new patient to me. MD FREYA [id number]
[2018-03-23] MEDS ORDERED: PANTOPRAZOLE 20 MG TABLET (FP) PO SCH (10:00)
== END 2018-03-22 15:02 | disposition home or self-care (01) | DRG 663 ==
LOC: JER 18:35 → JERBED 21:42 → J8W 03-21 05:31
PROVIDERS: ADMIT Internal Medicine; ATTEND Internal Medicine
PROC: 30233N1 Transfusion of Nonautologous Red Blood Cells into Peripheral Vein, Percutaneous Approach (ICD-10-PCS; principal; 2018-03-20)
DX: D50.8 Other iron deficiency anemias (principal); I31.3 Pericardial effusion (noninflammatory); D25.9 Leiomyoma of uterus, unspecified; N92.0 Excessive and frequent menstruation with regular cycle; F17.210 Nicotine dependence, cigarettes, uncomplicated; R60.9 Edema, unspecified; R74.8 Abnormal levels of other serum enzymes; K21.9 Gastro-esophageal reflux disease without esophagitis
CPT/HCPCS: 36415; 36430; 71046-TC-FY; 74177-TC; 76856-TC; 80048; 80053; 81003; 82272; 82607; 82728; 82746; 82977; 83540; 83550; 83735; 83880; 84100; 84466; 84703; 85025; 85027; 85044; 85610; 85730; 86850; 86900; 86901; 86922; 93005; 93010; 93306-TC; 93970-TC; 99285-25; J1644; P9038; P9058

== ENCOUNTER 2018-05-07 08:45 | Inpatient (IN) | payer OTHER ==
[2018-05-06 14:32] VITALS: BMI 21.6
[2018-05-07] MEDS ORDERED: ROCURONIUM BROMIDE 50 MG/5 ML VIAL ONE (09:05)
[2018-05-07] MEDS ORDERED: PROPOFOL 20 ML ONE (09:05)
[2018-05-07] MEDS ORDERED: SODIUM CHLORIDE 0.9% P/F 10 ML VIAL IJ ONE (09:05)
[2018-05-07] MEDS ORDERED: LIDOCAINE HCL/PF 2% SDV 5ML VIAL ONE (09:05)
[2018-05-07] MEDS ORDERED: DEXAMETHASONE SOD PHOSPHATE 4 MG/1 ML VIAL ONE (09:05)
[2018-05-07] MEDS ORDERED: ceFAZolin SODIUM 1 GM VIAL ONE (09:05)
[2018-05-07 09:28] LABS: URINE APPEARANCE CLEAR; URINE BILIRUBIN NEGATIVE (<2.0 mg/dL); URINE GLUCOSE (UA) NEGATIVE (NEGATIVE); URINE KETONE NEGATIVE (NEGATIVE); URINE LEUK ESTERASE NEGATIVE (NEGATIVE); URINE NITRITE NEGATIVE (NEGATIVE); URINE PROTEIN NEGATIVE (NEGATIVE)
[2018-05-07 09:32] LABS: URINE COLOR DK YELLOW
[2018-05-07 09:33] LABS: EPI CELLS FEW /HPF (FEW); URINE MUCUS MANY
[2018-05-07 09:40] LABS: INR 0.97 (0.83-1.09); PROTHROMBIN TIME (PATIENT) 11.4 SEC (9.7-13.0)
[2018-05-07 09:43] LABS: ACTIVATED PTT 28.3 SECONDS (25.2-36.5)
[2018-05-07] MEDS ORDERED: MIDAZOLAM HCL 2 MG/2 ML SINGLE DOSE VIAL ONE ×2 (10:22)
[2018-05-07] MEDS ORDERED: DESFLURANE GAS 240 ML BOTTLE IH ONE (10:47)
[2018-05-07] MEDS ORDERED: DEXMEDETOMIDINE HCL 200 MCG/2 ML ML IVPB ONE (10:47)
[2018-05-07] MEDS ORDERED: ceFAZolin SODIUM 1 GM VIAL IVPB ONE (11:13)
[2018-05-07] MEDS ORDERED: PHENYLEPHRINE HCL 10 MG/1 ML SINGLE DOSE VIAL ONE (11:24)
[2018-05-07] MEDS ORDERED: NEOSTIGMINE METHYLSULFATE 0.5 MG/ML - 10 ML MDV ONE (12:23)
[2018-05-07] MEDS ORDERED: GLYCOPYRROLATE 0.2 MG/1 ML VIAL ONE (12:24)
[2018-05-07] MEDS ORDERED: KETOROLAC TROMETHAMINE 30 MG/1 ML VIAL ONE (12:24)
[2018-05-07] MEDS ORDERED: CEFAZOLIN 2 GM in DEXTROSE 5%-WATER - 100 ML IVPB ONE (12:56)
[2018-05-07] MEDS ORDERED: PHENAZOPYRIDINE HCL 100 MG TABLET (FP) PO ONE (12:56)
--- NOTE | 2018-05-07 13:15 | OP ---
Operative Note - Note: Operative Date: 05/07/18 Pre-Operative Diagnosis: Symptomatic leiomyoma Operation: Open abdominal hysterectomy with bilateral salpingectomy, CHERYL Post-Operative Diagnosis: Same as Pre-op Surgeon: Raymond Vázquez Capacity Analyst: Alfredito Arnold Anesthesiologist/BACK GRAY CLOTH WASHER: Juan Francisco Montgomery Anesthesia: General Specimens Removed: uterus, bilateral tubes Estimated Blood Loss (mls): 100 Fluid Volume Replaced (mls): 1,000 Operative Report Dictated: Yes
[2018-05-07] MEDS ORDERED: PROMETHAZINE HCL 25 MG/1 ML VIAL ONE (13:17)
[2018-05-07] MEDS ORDERED: KETOROLAC TROMETHAMINE 30 MG/1 ML VIAL IVPUSH PRN (13:19)
[2018-05-07] MEDS ORDERED: ACETAMINOPHEN 1000 MG/100 ML VIAL (NON FORMULARY) IVPB PRN (13:20)
[2018-05-07] MEDS ORDERED: PROMETHAZINE HCL 25 MG/1 ML VIAL IVPUSH PRN (13:21)
[2018-05-07] MEDS ORDERED: ACETAMINOPHEN 1000 MG/100 ML VIAL (NON FORMULARY) IVPB ONE (13:58)
--- NOTE | 2018-05-07 14:28 | SURG ---
Surgery Electronics Technician Apprentice Note Electronics Technician Apprentice: Alfredito Arnold PA-C Date of Service: 05/07/18 Diagnosis: Symptomatic leiomyoma Procedure: Open abdominal hysterectomy with bilateral salpingectomy, CHERYL Leach was present for the entirety of the operative procedure. For further detail, please refer to operative report. Visit type - Case Type Case Type: Scheduled - New patient This patient is new to me today: Yes Date on this admission: 05/07/18
[2018-05-07] MEDS: DOCUSATE SODIUM 100 MG CAPSULE (FP) PO SCH ×2 (15:17→21:51)
[2018-05-07] MEDS: HYDROmorphone HCl 2 MG/ML VIAL IVPB PRN ×2 (15:40→21:51)
--- NOTE | 2018-05-07 15:56 | OP ---
DATE OF OPERATION: DATE OF DICTATION: 05/07/2018 PREOPERATIVE DIAGNOSES: 1. Large, growing, highly symptomatic uterine leiomyoma. 2. Menorrhagia with iron deficiency anemia. POSTOPERATIVE DIAGNOSES: 1. Large, growing, highly symptomatic uterine leiomyoma. 2. Menorrhagia with iron deficiency anemia. 3. Pelvic adhesions. 4. Clubbed tubes, possible status post pelvic inflammatory disease. SURGEON: Raymond Vázquez MD OPERATING ROOM AIDE: KEISHA Monaco ANESTHESIOLOGIST: and Juan Francisco Montgomery CRNA ANESTHESIA: General. PROCEDURE AND FINDINGS: Under general anesthesia, patient was prepped and draped in the normal fashion. Abdomen was opened through Pfannenstiel incision. Incision was carried out to subcutaneous tissue and fascia transversely. Peritoneum was opened vertically without difficulty. Very large uterus with multiple myomas, total compatible with 30 to 34 weeks of gestation was noted, RUQ mass was a large pedunculated fibroid on thick stalk. Anterior large myoma overhanging over the bladder was also seen. Uterine corpus was enlarged to about 18 weeks' size. Fallopian tubes were clubbed, and there was a cystic ending on the left fallopian tube. There was no ovarian cyst noted. [id number] adhesions, especially in the lower part of the abdomen, were noted fixing the uterus and adnexa. Generally, picture was compatible with previous pelvic inflammatory disease. Uterus was too large to remove it through the incision. Base of right upper quadrant myoma was then identified, clamped, and divided using cautery. Myoma did measure about 15 cm in size, was removed separately. Afterward, uterus was sufficiently decreased in size to be elevated above level of incision. All adhesions were then lysed using LigaSure device and Metzenbaum scissors. Both adnexa were freed, and so was the lower part of the uterus. Using LigaSure device, both tubes were dissected. They were identified and freed. Mesosalpinx was completely divided using LigaSure, and the tubes were detached from the uterus. There were sent together as a specimen. Right-sided round ligament and uteroovarian ligament were then divided using LigaSure device, anterior leaf of broad ligament was sharply incised, and bladder was dissected off the anterior myoma and uterine cervix. Uterine vessel plexus which was large was identified on the right side, clamped with Randall clamp, divided, and suture ligated with Vicryl 0. Double ligation was done. Same procedure in same sequence was then performed on the left side. Bladder was completely freed of the cervix and dissected by sharp and blunt dissection. After left-sided uterine vessel plexus was divided and secured, large uterine fundus was amputated. Cervical stump was then elevated using towel clips, and cardinal and uterosacral ligaments were divided with the use of LigaSure. Vaginal vault was then entered anteriorly and, using Anurag scissors, excised completely. Cervical specimen was sent together with the rest of the uterus and myoma. Vaginal angles were then secured with Vicryl 1 suture material using modified Te Mikhail sutures. The remains of the vault were closed with [id number] interrupted Vicryl 1 sutures. Small bleeding point was then secured with additional [id number] suture. Pelvis and abdomen were examined. Normal bowel, appendix were seen. Surgical site was irrigated, and hemostasis was excellent. Both ovaries were preserved. Counts reported correct. Abdomen was closed in layers. Peritoneum was closed with Monocryl 2-0 running suture, fascia with continuous Vicryl 1 running suture, and subcutaneous layer was closed with interrupted Monocryl sutures. Skin was approximated with 4-0 subcuticular Monocryl and Steri-Strips. Procedure was completed without complications. Sterile dressing was applied, and held in place with a binder. Urine was clear in the Callaway catheter and quite copious. Blood loss was 100 mL. Patient was awakened and transferred to PACU stable and comfortable. MD FREYA MAR/[id number] [facility]
[2018-05-07] MEDS: CEFAZOLIN 1 GM/D5W 1 GM/50 ML BAG IVPB SCH (18:03)
[2018-05-07] MEDS: LACTATED RINGERS SOLUTION 1,000 ML/1,000 ML INFUS.BAG IV SCH ×2 (18:06→21:55)
--- NOTE | 2018-05-07 20:37 | PN ---
Progress Note (short form) - Note Progress Note: Postop visit. Pt. is doing very well. Urine clear. OOB soon. Wound clean and dry. Abd. soft. Dressing and binder on. Procedure fully discussed. All explained. Patient is very happy. Narendra Vázquez MD
[2018-05-08] MEDS: CEFAZOLIN 1 GM/D5W 1 GM/50 ML BAG IVPB SCH (01:57)
[2018-05-08] MEDS: HYDROmorphone HCl 2 MG/ML VIAL IVPB PRN (02:14)
[2018-05-08] MEDS: LACTATED RINGERS SOLUTION 1,000 ML/1,000 ML INFUS.BAG IV SCH (06:25)
[2018-05-08] MEDS: DOCUSATE SODIUM 100 MG CAPSULE (FP) PO SCH ×3 (06:25→21:25)
[2018-05-08] MEDS ORDERED: LACTATED RINGERS SOLUTION 1,000 ML/1,000 ML INFUS.BAG IV SCH (09:27)
[2018-05-08] MEDS ORDERED: ACETAMINOPHEN 650 MG/20.3 ML ORAL SOLUTION (CUPS) PO PRN (09:30)
--- NOTE | 2018-05-08 09:34 | PN ---
Progress Note (short form) - Note Progress Note: POD#1 Pt without complaints today, oob to chair and ambulating to the bathroom. No nausea or emesis, diet advanced to regular. Vital Signs Period Temp Pulse Resp BP Sys/Gandhi Pulse Ox Last 24 Hr 97.6 F-98.7 F 71-93 16-20 122-152/55-90 97-100 GEN: A&0x3, NAD ABD: soft, non-distended, inc tenderness. Inc c/d/i with steri-strips. Abd binder in place. LE: no calf tenderness CBC, BMP 05/08/18 10:01 A/P: 42 yo female s/p Open abdominal hysterectomy with bilateral salpingectomy, CHERYL Doing well clinically, continue diet as tolerated Discontinue IV Fluids OOB and ambulate Ordered CBC for today Pain management with oral tylenol/ IV toradol and oxycodone as needed D/w Jerry Vázquez
[2018-05-08] MEDS ORDERED: PNEUMOCOCCAL 23 VACCINE 0.5 ML VIAL IM ONE (10:00)
[2018-05-08] MEDS ORDERED: PNEUMOC 13-VAL CONJ-DIP CRM/PF 0.5 ML DISP.SYRIN IM ONE (10:00)
[2018-05-08 10:41] LABS: BASO % 0.4 % (0-2.0); EOS % 0.2 % (0-4.5); HEMATOCRIT 32.9 % (32.4-45.2); HEMOGLOBIN 10.5 GM/dL (10.7-15.3); MCH 27.2 pg (25.7-33.7); MEAN PLT VOLUME 8.3 fl (7.5-11.1); MONO % 6.2 % (3.8-10.2); NEUT % 70.2 % (42.8-82.8); PLATELET COUNT 257 K/MM3 (134-434); RBC 3.87 M/mm3 (3.60-5.2); RDW 26.6 % (11.6-15.6); WHITE BLOOD COUNT 6.8 K/mm3 (4.0-10.0)
[2018-05-08] MEDS: oxyCODONE HCL 5 MG TABLET PO PRN ×2 (12:06→21:25)
[2018-05-08 13:43] LABS: ANISOCYTOSIS 1+; MACROCYTOSIS 0; PLATELET ESTIMATE NORMAL; TARGET CELLS 1+
[2018-05-08] MEDS: ACETAMINOPHEN 325 MG TABLET (FP) PO PRN (21:25)
[2018-05-08 22:47] VITALS: TEMP 99.2
[2018-05-09] MEDS: ACETAMINOPHEN 325 MG TABLET (FP) PO PRN ×2 (04:21→11:23)
[2018-05-09] MEDS: oxyCODONE HCL 5 MG TABLET PO PRN ×2 (04:22→11:22)
[2018-05-09] MEDS: DOCUSATE SODIUM 100 MG CAPSULE (FP) PO SCH ×2 (07:09→14:21)
--- NOTE | 2018-05-09 08:01 | DS ---
Physical Exam: SUBJECTIVE: Patient seen and examined. Doing well. C/o mild incisionla tenderness. Adequate pain control with PO pain meds. She continues to get oob and ambulate unassisted. Using her incentive spirometer as directed. Tolerating PO diet. Passing flatus. Still no bm. Voiding spontaneously. Denies n/v/f/c, CP, palpitations, SOB, LUI or hematuria. OBJECTIVE: Last Vital Signs Temp Pulse Resp BP Pulse Ox 99.2 F 80 18 140/79 98 05/08/18 22:00 05/08/18 22:00 05/08/18 22:00 05/08/18 22:00 05/08/18 07:46 PE GENERAL: Awake, alert, and fully oriented, in no acute distress. HEAD: NC. AT. NECK: Trachea midline, full range of motion, supple. LUNGS: CTA bilat COR: RRR ABD: Soft, low transverse incision steri strips c/d/i. No palpable hematoma. Non -distended, BS x4. LE: 2+ pulses, warm, well-perfused, no edema. PSYCH: Normal mood, normal affect. SKIN: Warm, dry, normal turgor, no rashes or lesions noted. LABS CBC 05/08/18 10:01 HOSPITAL COURSE: Date of Admission:05/07/18 The patient was admitted to the OBGYN Unit after an elective repair of their symptomatic leiomyoms. Now, s/p ppen abdominal hysterectomy with bilateral salpingectomy and lysis of adhesions. Courtney-operative IV ABX were administered. DVT prophylaxis was achieved with SCDs and early ambulation. Pain management achieved with a variety of medications (narcotic and non-narcotic). POD #1, the carlos catheter was removed and trial of void began (which she passed ). Continues to wear her abd binder as instructed. Getting out of bed and ambulating hallways unassisted. Tolerating regular diet. Narcotic scripts were checked with [facility] prior to escribe. The discharge instructions and an oral pain management plan were reviewed with the patient. All questions answered. Above plan discussed with Dr. Vázquez and agrees. Date of Discharge: 05/09/18 Minutes to complete discharge: 35 Visit type - Case Type Case Type: Scheduled
[2018-05-09 09:01] VITALS: BP 149/86; PULSE 67
--- NOTE | 2018-05-09 11:29 | PN ---
Progress Note (short form) - Note Progress Note: Patient is recovering very nicely. Abd. soft. Incision clean and dry; healing. Instructions given. Discharge today. F/U in 3 weeks.
--- NOTE | 2018-05-12 19:41 | PATH ---
Surgical Pathology Report Patient Name: KATERINA THEODORE [facility]. Rec. #: [id number] /Age/Gender: 1975 (Age: 42) / F Account: [id number] Location: [facility] OBS/RECEIVER DISPATCHER Taken: 05/07/2018 Received: 05/07/2018 Reported: 05/12/2018 Physicians: Raymond Vázquez MD Specimen(s) Received UTERUS, CERVIX, WITH BILATERAL TUBES Clinical History Leiomyoma of uterus, anemia, heavy menstruation Final Diagnosis UTERUS, CERVIX, BILATERAL FALLOPIAN TUBES, HYSTERECTOMY AND BILATERAL SALPINGECTOMY: LEIOMYOMATA WITH FOCAL DEGENERATIVE CHANGE (HYALINIZATION AND CALCIFICATIONS). LATE SECRETORY TYPE ENDOMETRIUM. CERVIX WITH SQUAMOUS METAPLASIA. BILATERAL FALLOPIAN TUBES WITH HEMATOSALPINX AND CHRONIC SALPINGITIS. Electronically Signed Lovely Mejia M.D. Gross Description Received in formalin labeled "uterus, cervix, bilateral fallopian tubes," is a 1507 gram supracervically amputated uterus with no attached adnexa. The bilateral fallopian tubes and cervix are separately received within the same container. There is a large fibroid also separately received within the same container. The uterus measures 15.0 cm from anterior to posterior, 14.5 cm from superior to inferior and 11 cm from left to right. The serosa is altamirano-pink with focal subserosal nodules. The endometrial cavity measures 11 cm from superior to inferior and 5.2 cm from cornu to cornu. The endometrium has a thickened, papillary appearance, possibly consistent with polyps. The endometrium measures up to 0.5 cm in thickness. Sectioning of the myometrium displays abundant intramural nodules measuring up to 8.0 cm in greatest dimension. One of the nodules is markedly calcified. The remaining myometrium is altamirano-pink and focally measures up to 8.5 cm in length. The separately received fibroid measures 1111 g and measures 16.5 cm in greatest dimension. The outer surface of the fibroid is altamirano-pink and smooth. Sectioning reveals altamirano, firm to rubbery parenchyma with whorled architecture and foci of hemorrhage. The separately received, unoriented cervix measures 3 cm in length and 2.8 cm in diameter. The ectocervix is altamirano-pink, smooth and glistening. The endocervix is unremarkable. The separately received, arbitrarily designated "fallopian tube one" measures 5.5 cm in length. The tube appears markedly dilated and there are no fimbria present. The outer surface is altamirano marquez and smooth. Sectioning reveals brown blood within the lumen. Arbitrarily designated "fallopian tubes 2" measures 5 cm in length. The outer surface is altamirano-rea and smooth. No fimbria are present. Sectioning reveals focal brown blood within the lumen. [employer] sections are submitted in 24 cassettes as follows: 1-cervical stump margin of resection; 2-anterior lower uterine segment; 1-6-szfydahb endomyometrium; 7-posterior lower uterine segment; 2-69-prkuyklrc endomyometrium; 11-subserosal nodules; 85-33-jfspvpxjw intramural nodule; 57-40-efywwlvtlg intramural nodules; 42-47-dtmldinacs received large fibroid; 95-72-ltpntr; 76-89-iqtgpleta tube one; 24-fallopian tube two. 05/08/2018 [facility]05/08/2018
== END 2018-05-09 15:20 | disposition home or self-care (01) | DRG 519 ==
LOC: JSAMEDAYSX 08:45 → EDSTATUS 13:00 → J3W 14:58
PROVIDERS: ADMIT Specialist; ATTEND Specialist
PROC: 0UT70ZZ Resection of Bilateral Fallopian Tubes, Open Approach (ICD-10-PCS; 2018-05-07)
PROC: 0DNW0ZZ Release Peritoneum, Open Approach (ICD-10-PCS; 2018-05-07)
PROC: 0UT90ZZ Resection of Uterus, Open Approach (ICD-10-PCS; principal; 2018-05-07 11:00)
DX: D25.9 Leiomyoma of uterus, unspecified (principal); K66.0 Peritoneal adhesions (postprocedural) (postinfection); D50.9 Iron deficiency anemia, unspecified; N92.0 Excessive and frequent menstruation with regular cycle
CPT/HCPCS: 36415; 81003; 81015; 84703; 85025; 85610; 85730; 86850; 86900; 86901; 88307-TC; 90732; 94760; G0009; J0131

== ENCOUNTER 2018-05-13 14:08 | Emergency (ER) | payer OTHER ==
[2018-05-13 14:43] VITALS: BMI 21.4
[2018-05-13] MEDS ORDERED: SODIUM CHLORIDE 1,000 ML IV STA (15:45)
[2018-05-13] MEDS ORDERED: ACETAMINOPHEN 1000 MG/100 ML VIAL (NON FORMULARY) IVPB ONE (15:45)
--- NOTE | 2018-05-13 16:01 | PDOC ---
History of Present Illness - General Chief Complaint: Vaginal Bleeding Stated Complaint: BLEEDING Time Seen by Provider: 05/13/18 15:18 - History of Present Illness Initial Comments: 42yo F with PMH of fibroids and open abdominal hysterectomy with bilateral salpingectomy on 05/07/18 presenting with vaginal bleeding and abdominal pain. Patient reports that since her surgery, her post-op course had been unremarkable until two hours prior to arrival. She started experiencing abdominal cramping, rated 7/10. Patient is unable to quantify how much vaginal bleeding she has had, but has noticed clots. Last bowel movement was yesterday and was a normal formed brown stool without blood. Denies nausea or vomiting. No syncope or near-syncope. Denies fever, chills, chest pain, or shortness of breath. Past History - Past Medical History Allergies/Adverse Reactions: Allergies Allergy/AdvReac Type Severity Reaction Status Date / Time No Known Allergies Allergy Verified 03/20/18 18:59 Home Medications: Ambulatory Orders Ferrous Sulfate [Feosol] 325 mg PO TIDCM 30 Days #90 ud MDD 3 03/22/18 B-Complex with Vitamin C [Vitamin B-Complex with Vit C] 1 each PO DAILY Norethindrone Acetate [Aygestin] 5 mg PO TID 05/07/18 Oxycodone HCl 5 mg PO Q6H PRN #10 tablet MDD 4 05/08/18 Anemia: Yes Asthma: No Cancer: No Cardiac Disorders: No CVA: No COPD: No CHF: No Dementia: No Diabetes: No GI Disorders: No Disorders: No HTN: No Hypercholesterolemia: No Liver Disease: No Seizures: No Thyroid Disease: No - Immunization History Immunization Up to Date: Yes - Suicide/Smoking/Psychosocial Hx Smoking History: Never smoked Have you smoked in the past 12 months: No Number of Cigarettes Smoked Daily: 3 Information on smoking cessation initiated: No 'Breaking Loose' booklet given: 05/06/18 Hx Alcohol Use: No Drug/Substance Use Hx: No Substance Use Type: None Hx Substance Use Treatment: No Review of Systems - Review of Systems Comments:: Constitutional: no fever, no chills HEENT: no throat pain, no dysphagia Cardiovascular: no chest pain, no palpitations Respiratory: no cough, no shortness of breath Gastrointestinal: +abdominal pain, no nausea, no vomiting Genitourinary: no dysuria, +vaginal bleeding Musculoskeletal: no myalgia, no arthralgia Skin: no rash, no itching Neurologic: no headache, no dizziness *Physical Exam - Vital Signs Last Vital Signs Temp Pulse Resp BP Pulse Ox 98.3 F 108 H 18 116/80 100 05/13/18 14:40 05/13/18 14:40 05/13/18 14:40 05/13/18 14:40 05/13/18 14:40 - Physical Exam Comments: General: Awake, alert, and fully oriented, in no acute distress Head: No signs of trauma Eyes: EOMI, sclera anicteric ENT: Moist mucus membranes Neck: Normal ROM, supple Lungs: Lungs clear, Normal breath sounds Cardio: Regular rhythm, S1 and S2 present Abdomen: Tender to palpation diffusely, most focal to the lower quadrants. Soft , bowel sounds present. No guarding, rebound, or masses. Surgical scar is well- healing without erythema, discharge, or blood. Extremities: Normal range of motion, Distal pulses present SKIN: Warm, Dry, normal turgor Neurologic: Cranial nerves II through XII grossly intact. Normal speech Moderate Sedation - Procedure Monitoring Vital Signs: Procedure Monitoring Vital Signs Temperature 98.3 F 05/13/18 14:40 Pulse Rate 108 H 05/13/18 14:40 Respiratory Rate 18 05/13/18 14:40 Blood Pressure 116/80 05/13/18 14:40 O2 Sat by Pulse Oximetry (%) 100 05/13/18 14:40 ED Treatment Course - LABORATORY CBC & Chemistry Diagram: 05/13/18 16:15 05/13/18 16:15 - RADIOLOGY Radiology Studies Ordered: Category Date Time Status ABDOMEN & PELVIS CT WITH CONTR [CT] Stat CT Scan 05/13/18 15:45 Ordered Medical Decision Making - Medical Decision Making 42yo F with PMH of fibroids and open abdominal hysterectomy with bilateral salpingectomy on 05/07/18 presenting with vaginal bleeding and abdominal pain. -DDX including but not limited to post-operative hematoma, abscess, free fluid in the abdomen, malignancy -Labs: CBC, CMP, TS, Coags -CT abdomen/pelvis with contrast -1L NS, 1g Ofirmev -Spoke with Dr. Vázquez, patient's surgeon, who agrees with workup and would like to be contacted with CT report 05/13/18 16:01 No leukocytosis. Hgb=11.3 (up from 10.5 on 05/08/18); electrolytes unremarkable Patient in CT 05/13/18 17:23 CT report with nonspecific findings consistent with post-operative period. Discussed case with Dr. Vázquez who agrees that patient is stable for discharge home and can follow-up with him this week. He advised pelvic rest as well as activity limitations. Patient discharged. *DC/Admit/Observation/Transfer Diagnosis at time of Disposition: Post-op bleeding - Discharge Dispostion Disposition: HOME Condition at time of disposition: Stable - Referrals Referrals: Micky Bateman [Primary Care Provider] - Raymond Vázquez MD [Staff Physician] - - Patient Instructions Printed Discharge Instructions: DI for Post-Surgical Bleeding Additional Instructions: You came into the ED for abdominal pain and vaginal bleeding six days after having surgery. Your workup did not show acute findings. We spoke with your surgeon, Dr. Vázquez, who can see you for an earlier follow- up. Call his office on Sunday. Limit your activities during this post-operative period. Do not lift objective heavier than ten pounds. Do not bend (such as for picking things up off the ground). Refrain from exertional activities. Pelvic rest is advised. Do not engage in sexual intercourse until you are cleared by your physician. You can take the pain medication that you have already been prescribed. You can also take tylenol for your pain. Follow the instructions on the medication bottle. The CT scan shows a nonspecific finding on your spleen. Correlation with a three month follow-up ultrasound, MRI, or CT is recommended. Follow-up with your primary care doctor regarding this. Return to the Emergency Department if you experience: -heavy bleeding -severe pain -lightheadedness -shortness of breath -high fever -any other concerning symptoms - Post Discharge Activity
--- NOTE | 2018-05-13 16:16 | PDOC ---
Attending Attestation - Medical Decision Making 05/13/18 16:30 Documentation prepared by Wing James, acting as medical device for Alli Deshpande MD. <Wing James - Last Filed: 05/13/18 16:30> - Resident Resident Name: Tracey Parekr - ED Attending Attestation I have performed the following: I have examined & evaluated the patient, The case was reviewed & discussed with the resident, I agree w/resident's findings & plan, Exceptions are as noted - HPI HPI: 05/13/18 16:13 The patient is a 42 year old female, with a significant PMH of fibroids s/p total hysterectomy, who presents to the emergency department with 2 hours of vaginal bleeding. The patient states she had an open abdominal hysterectomy performed [address] Vázquez. The patient has felt fine since that time up until 2 hours ago when the vaginal bleeding began. The patient also endorses lower abdominal pain. The patient denies any recent fevers or chills. Denies any chest pain or shortness of breath. Denies abdominal distention. Denies constipation or vomiting. The patient denies chest pain, shortness of breath, headache and dizziness. Denies fever, chills, nausea, vomit, diarrhea and constipation. Denies dysuria, frequency, urgency and hematuria. Allergies: NKA - Physicial Exam PE: 05/13/18 16:14 "GENERAL: Awake, alert, and fully oriented, in no acute distress. HEAD: No signs of trauma EYES: PERRLA, EOMI, sclera anicteric, conjunctiva clear ENT: Auricles normal inspection, hearing grossly normal, nares patent, oropharynx clear without exudates. Moist mucosa NECK: Nontender, no stepoffs, Normal ROM, supple, no lymphadenopathy, JVD, or masses LUNGS: Breath sounds equal, clear to auscultation bilaterally. No wheezes, and no crackles HEART: Regular rate and rhythm, normal S1 and S2, no murmurs, rubs or gallops ABDOMEN: + Low transverse incision healing well, no drainage, + TTP bilateral lower quadrants EXTREMITIES: Normal range of motion, no edema. No clubbing or cyanosis. No cords, erythema, or tenderness NEUROLOGICAL: Cranial nerves II through XII intact. 5/5 strength and sensation in all extremities, Normal speech, normal gait, normal cerebellar function SKIN: Warm, Dry, normal turgor, no rashes or lesions noted. - Medical Decision Making 05/13/18 16:15 42 F with vaginal bleeding and pain x 1 day, no POD 6 from total hysterectomy. Pt with tenderness in lower quadrants on exam. Will need to r/o post-op complication, such as infection or hematoma. - Labs, coags, T&S - IVF, pain control - Consult Dr. Montes 05/13/18 18:16 Labs wnl, CBC stable CT obtained - shows nonspecific pneumoperitoneum, likely 2/2 surgery, as well as nonspecific thickening of vaginal fornix and edema of R paracolic space + small amount of free fluid. Dr. Vázquez consulted, results reviewed with him. He believes these are normal post-op findings Pt informed of results, will f/u on Sunday with Dr. Vázquez. Given return precautions Pt is well appearing, with normal vitals. Clinically stable for DC at this time. I discussed the physical exam findings, ancillary test results and final diagnoses with the patient. I answered all of the patient's questions. The patient was satisfied with the care received and felt comfortable with the discharge plan and treatment plan. The patient agrees to follow up with the primary care physician within 24-72 hours. <Alli Deshpande - Last Filed: 05/13/18 18:25>
[2018-05-13 16:35] LABS: EOS % 1.4 % (0-4.5); HEMATOCRIT 32.2 % (32.4-45.2); HEMOGLOBIN 11.3 GM/dL (10.7-15.3); LYMPH % 31.5 % (8-40); MCH 28.7 pg (25.7-33.7); MCHC 35.2 g/dl (32.0-36.0); MEAN CELL VOLUME 81.6 fl (80-96); MEAN PLT VOLUME 6.5 fl (7.5-11.1); MONO % 7.6 % (3.8-10.2); NEUT % 58.5 % (42.8-82.8); PLATELET COUNT 408 K/MM3 (134-434); RBC 3.95 M/mm3 (3.60-5.2); RDW 24.8 % (11.6-15.6); WHITE BLOOD COUNT 6.2 K/mm3 (4.0-10.0)
[2018-05-13] MEDS ORDERED: ACETAMINOPHEN INJECTION 100 ML IVPB ONE (16:36)
[2018-05-13 16:47] LABS: INR 1.03 (0.83-1.09); PROTHROMBIN TIME (PATIENT) 12.1 SEC (9.7-13.0)
[2018-05-13 16:50] LABS: ACTIVATED PTT 28.1 SECONDS (25.2-36.5)
[2018-05-13 16:54] LABS: ALBUMIN 3.2 g/dl (3.4-5.0); ALK PHOS 96 U/L (45-117); ANION GAP 8 MMOL/L (8-16); BILIRUBIN,TOTAL 0.2 mg/dL (0.2-1); BLOOD UREA NITROGEN 11 mg/dL (7-18); CALCIUM 8.1 mg/dL (8.5-10.1); CHLORIDE 110 mmol/L (98-107); CO2 22 mmol/L (21-32); CREATININE 0.5 mg/dL (0.55-1.3); GLUCOSE,RANDOM 92 mg/dL (74-106); SGOT/AST 48 U/L (15-37); SGPT/ALT 29 U/L (13-61); SODIUM 140 mmol/L (136-145); TOT PROT 7.5 g/dl (6.4-8.2)
[2018-05-13 17:16] LABS: ANISOCYTOSIS 3+; PLATELET ESTIMATE ADEQUATE
[2018-05-13 17:17] LABS: TARGET CELLS 1+
[2018-05-13 18:28] VITALS: BP 137/95; PULSE 90; TEMP 98
== END 2018-05-13 18:49 | disposition home or self-care (01) ==
LOC: JER 14:08
PROC: 3E0337Z Introduction of Electrolytic and Water Balance Substance into Peripheral Vein, Percutaneous Approach (ICD-10-PCS; principal; 2018-05-13)
PROC: 3E033NZ Introduction of Analgesics, Hypnotics, Sedatives into Peripheral Vein, Percutaneous Approach (ICD-10-PCS; 2018-05-13)
DX: N99.820 Postprocedural hemorrhage of a genitourinary system organ or structure following a genitourinary system procedure (principal)
CPT/HCPCS: 36415; 74177-TC; 80053; 85025; 85610; 85730; 86850; 86900; 86901; 99283-25; J0131; J7030